=== PATIENT | female | born 1945 | race Caucasian/White ===

== ENCOUNTER → 2016-11-07 | Outpatient (CLI) | payer OTHER ==
[~2016-11-07] MED LIST: ASPIRIN325 MG PO; BACTRIM,SEPT1 TABLET PO; BYSTOLIC10 MG PO; CALCIUM 600 +1 EAC4 PO; FERREX 150150 MG PO; HYDROCODON-ACE1 EAC7 PO; LISINOPRIL20 MG PO; METRONIDAZOLE500 MG PO; MULTIPLE VITAM1 EACH PO; OMEGA-31000 M1 PO; PRAVASTATIN SOD10 MG PO; SUPER B COMP1 TABLET PO; VENLAFAXINE HCL75 MG PO; VITAMIN C1000 MG PO; VITAMIN D2000 UNIT PO
[2016-11-07 10:15] LABS: PROTHROMBIN TIME 10.4 (9.2-11.2); PTT 28.9 (25-32)
[2016-11-07 10:16] LABS: HEMATOCRIT 40.1 % (36.0-46.0); MCH 29.9 PG (29.0-34.0); MCHC 32.2 G/DL (30.0-36.0); MCV 92.8 FL (83-99); MEAN PLAT.VOLUME 10.3 uM^3 (9.5-12.4); PLATELET COUNT 287 K/uL (156-360); RBC DIS.WIDTH-CV 13.4 % (11.8-14.6); RBC DIS.WIDTH-SD 45.9 % (39-53); RED BLOOD COUNT 4.32 M/uL (3.80-5.20)
== END | disposition home or self-care (01) ==
LOC: OPR 09:27 → EDSTATUS 10:00
PROVIDERS: Radiology Diagnostic Radiology
PROC: 0BBJ3ZX Excision of Left Lower Lung Lobe, Percutaneous Approach, Diagnostic (ICD-10-PCS; principal; 2016-11-07)
DX: C78.02 Secondary malignant neoplasm of left lung (principal); Z85.038 Personal history of other malignant neoplasm of large intestine; Z92.21 Personal history of antineoplastic chemotherapy; Z88.0 Allergy status to penicillin
CPT/HCPCS: 71010; 77012; 85027; 85610; 85730; 88305; 88341 TC; 88342 TC; J3010

== ENCOUNTER → 2016-12-07 | Outpatient (CLI) | payer OTHER ==
[2016-12-07 09:21] LABS: BASE EXCESS 0.7 mEq/L (-3 to +3); BICARBONATE 24.3 mEq/L (22-26); CARBOXY HGB 0.9 % (0-5); COMMENTS - BLOOD GASES NAC+; PCO2 35 mm Hg (35-45); PO2 72 mm Hg (80-100); SITE LR; pH 7.45 (7.35-7.45)
[2016-12-07 09:22] LABS: FI02 21 %
== END | disposition home or self-care (01) ==
LOC: RES 09:00
PROVIDERS: Thoracic Surgery (Cardiothoracic Vascular Surgery)
DX: C18.9 Malignant neoplasm of colon, unspecified (principal); C77.2 Secondary and unspecified malignant neoplasm of intra-abdominal lymph nodes; C78.00 Secondary malignant neoplasm of unspecified lung
CPT/HCPCS: 36600; 82803; 94060; 94726; 94729

== ENCOUNTER 2016-12-27 11:58 | Day surgery (SDC) | payer OTHER ==
[~2016-12-27] VITALS: Ht 157.5 cm; Wt 72.7 kg
[2016-12-27 12:48] LABS: EOSINOPHIL (%) 1.5 % (0-5); EOSINOPHIL COUNT 0.1 K/uL (0-0.3); HEMATOCRIT 40.8 % (36.0-46.0); IMMATURE GRANULOCYTE COUNT 0.1 K/uL; INSTRUMENT ABS NEUTROPHIL CT 4.6 K/uL; LYMPHOCYTE COUNT 1.4 K/uL (1.0-2.8); MCH 29.8 PG (29.0-34.0); MCHC 32.6 G/DL (30.0-36.0); MCV 91.3 FL (83-99); MEAN PLAT.VOLUME 10.2 uM^3 (9.5-12.4); MONOCYTE (%) 7.8 % (3-12); MONOCYTE COUNT 0.5 K/uL (0-0.8); NEUTROPHIL (%) 68.3 % (45-76); NEUTROPHIL COUNT 4.6 K/uL (1.8-6.4); PLATELET COUNT 238 K/uL (156-360); RBC DIS.WIDTH-CV 13.1 % (11.8-14.6); RBC DIS.WIDTH-SD 44.3 % (39-53); RED BLOOD COUNT 4.47 M/uL (3.80-5.20); WHITE BLOOD COUNT 6.7 K/uL (4.1-10.2)
[2016-12-27 12:50] VITALS: BP 164/72
[2016-12-27 12:55] LABS: CHLORIDE 108 mEq/L (99-109); POTASSIUM 4.2 mEq/L (3.7-5.4); SODIUM 141 mEq/L (136-147)
[2016-12-27 12:57] LABS: GLUCOSE 96 mg/dL (70-99)
[2016-12-27 12:58] LABS: ANION GAP 11 MEQ/L (2-14)
[2016-12-27 12:59] LABS: TOTAL BILIRUBIN 0.6 mg/dL (0.0-1.0)
[2016-12-27 13:00] LABS: ALKALINE PHOSPHATASE 73 IU/L (3-129); GFR ESTIMATE (CALCULATED) > 59 mL/min/
[2016-12-27 13:02] LABS: UREA NITROGEN (BUN) 15 mg/dL (9-23)
[2016-12-27] MEDS ORDERED: HYDROCODON-ACE1 EAC7 PO (18:47)
[2016-12-27] MEDS ORDERED: COLACE100 MG PO (18:47)
[2016-12-27 19:15] VITALS: BP 191/86
[2016-12-27 19:50] VITALS: BP 181/86
[2016-12-27 20:20] VITALS: BP 164/72
[2016-12-27 21:15] VITALS: BP 172/80
== END 2016-12-27 21:24 | disposition home or self-care (01) ==
LOC: SDC 11:58
PROVIDERS: Thoracic Surgery (Cardiothoracic Vascular Surgery)
DX: C78.02 Secondary malignant neoplasm of left lung (principal); I10 Essential (primary) hypertension; Z85.038 Personal history of other malignant neoplasm of large intestine; Z88.0 Allergy status to penicillin; Z86.73 Personal history of transient ischemic attack (TIA), and cerebral infarction without residual deficits
CPT/HCPCS: 71010; 80053; 85025; 86900; 86901; 88305; C1751; J0330; J0690; J3010

== ENCOUNTER 2017-01-24 09:44 | Inpatient (IN) | payer OTHER ==
[2017-01-24] VITALS (7 sets, daily range): BP systolic 135–217; BP diastolic 53–93
[~2017-01-24] VITALS: Ht 160 cm; Wt 74.1 kg
[~2017-01-24 09:44] MED LIST changes: +COLACE100 MG PO
[2017-01-24 10:49] LABS: EOSINOPHIL (%) 1.5 % (0-5); EOSINOPHIL COUNT 0.1 K/uL (0-0.3); HEMATOCRIT 39.7 % (36.0-46.0); IMMATURE GRANULOCYTE (%) 0.9 % (0.0-0.7); IMMATURE GRANULOCYTE COUNT 0.1 K/uL; INSTRUMENT ABS NEUTROPHIL CT 4.9 K/uL; LYMPHOCYTE COUNT 1.3 K/uL (1.0-2.8); MCH 29.2 PG (29.0-34.0); MCHC 32.2 G/DL (30.0-36.0); MCV 90.6 FL (83-99); MEAN PLAT.VOLUME 10.3 uM^3 (9.5-12.4); MONOCYTE (%) 6.3 % (3-12); MONOCYTE COUNT 0.4 K/uL (0-0.8); NEUTROPHIL (%) 71.7 % (45-76); NEUTROPHIL COUNT 4.9 K/uL (1.8-6.4); PLATELET COUNT 245 K/uL (156-360); RBC DIS.WIDTH-CV 13.2 % (11.8-14.6); RBC DIS.WIDTH-SD 44.5 % (39-53); RED BLOOD COUNT 4.38 M/uL (3.80-5.20); WHITE BLOOD COUNT 6.8 K/uL (4.1-10.2)
[2017-01-24 11:00] LABS: PROTHROMBIN TIME 10.3 (9.2-11.2)
[2017-01-24 11:21] LABS: ANION GAP 12 MEQ/L (2-14); CHLORIDE 105 MEQ/L (99-109); POTASSIUM 4.1 MEQ/L (3.7-5.4); SAMPLE HEMOLYSIS CHECK 0; SAMPLE ICTERIC CHECK 0; SAMPLE LIPEMIA CHECK 0; SODIUM 141 MEQ/L (136-147); TOTAL BILIRUBIN 0.5 MG/DL (0.0-1.0)
[2017-01-24 11:27] LABS: ALKALINE PHOSPHATASE 89 IU/L (3-129); GFR ESTIMATE (CALCULATED) > 59 mL/min/; GLUCOSE 104 mg/dL (70-99); UREA NITROGEN (BUN) 17 mg/dL (9-23)
[2017-01-24 21:19] LABS: METH RESISTANT S AUREUS PCR NEGATIVE (NEGATIVE)
[2017-01-24 21:20] LABS: PROBE CHECK PASS; SPECIMEN PROCESSING CONTROL PASS
[2017-01-25] VITALS (14 sets, daily range): BP systolic 109–196; BP diastolic 50–76
[2017-01-25 07:06] LABS: HEMATOCRIT 32.3 % (36.0-46.0); MCH 29.6 PG (29.0-34.0); MCHC 32.2 G/DL (30.0-36.0); MEAN PLAT.VOLUME 10.2 uM^3 (9.5-12.4); PLATELET COUNT 199 K/uL (156-360); RBC DIS.WIDTH-CV 13.4 % (11.8-14.6); RBC DIS.WIDTH-SD 45.1 % (39-53); RED BLOOD COUNT 3.51 M/uL (3.80-5.20); WHITE BLOOD COUNT 10.5 K/uL (4.1-10.2)
[2017-01-25 07:13] LABS: ANION GAP 9 MEQ/L (2-14); CHLORIDE 103 MEQ/L (99-109); GFR ESTIMATE (CALCULATED) > 59 mL/min/; GLUCOSE 117 mg/dL (70-99); POTASSIUM 4.7 MEQ/L (3.7-5.4); SAMPLE HEMOLYSIS CHECK 0; SAMPLE ICTERIC CHECK 0; SAMPLE LIPEMIA CHECK 0; SODIUM 137 MEQ/L (136-147); UREA NITROGEN (BUN) 20 mg/dL (9-23)
[2017-01-26] VITALS (14 sets, daily range): BP systolic 130–182; BP diastolic 50–78
[2017-01-26 06:04] LABS: HEMATOCRIT 30.9 % (36.0-46.0); MCH 30.6 PG (29.0-34.0); MCV 92.8 FL (83-99); MEAN PLAT.VOLUME 10.6 uM^3 (9.5-12.4); PLATELET COUNT 175 K/uL (156-360); RBC DIS.WIDTH-CV 13.6 % (11.8-14.6); RBC DIS.WIDTH-SD 46.4 % (39-53); RED BLOOD COUNT 3.33 M/uL (3.80-5.20); WHITE BLOOD COUNT 8.9 K/uL (4.1-10.2)
[2017-01-26 06:33] LABS: ANION GAP 6 MEQ/L (2-14); CHLORIDE 102 MEQ/L (99-109); GFR ESTIMATE (CALCULATED) > 59 mL/min/; GLUCOSE 119 mg/dL (70-99); SAMPLE HEMOLYSIS CHECK 0; SAMPLE ICTERIC CHECK 0; SAMPLE LIPEMIA CHECK 0; SODIUM 137 MEQ/L (136-147); UREA NITROGEN (BUN) 12 mg/dL (9-23)
[2017-01-27] VITALS (9 sets, daily range): BP systolic 0–191; BP diastolic 0–81
[2017-01-27 05:22] LABS: HEMATOCRIT 30.9 % (36.0-46.0); MCH 29.7 PG (29.0-34.0); MCHC 32.4 G/DL (30.0-36.0); MCV 91.7 FL (83-99); MEAN PLAT.VOLUME 10.4 uM^3 (9.5-12.4); PLATELET COUNT 189 K/uL (156-360); RBC DIS.WIDTH-CV 13.3 % (11.8-14.6); RBC DIS.WIDTH-SD 45.1 % (39-53); RED BLOOD COUNT 3.37 M/uL (3.80-5.20); WHITE BLOOD COUNT 8.4 K/uL (4.1-10.2)
[2017-01-27 13:16] LABS: ANION GAP 7 MEQ/L (2-14); CHLORIDE 106 MEQ/L (99-109); POTASSIUM 3.7 MEQ/L (3.7-5.4); SAMPLE HEMOLYSIS CHECK 0; SAMPLE ICTERIC CHECK 0; SAMPLE LIPEMIA CHECK 0; SODIUM 142 MEQ/L (136-147)
[2017-01-27 13:21] LABS: GFR ESTIMATE (CALCULATED) > 59 mL/min/; GLUCOSE 94 mg/dL (70-99); UREA NITROGEN (BUN) 12 mg/dL (9-23)
[2017-01-28] VITALS (11 sets, daily range): BP systolic 107–175; BP diastolic 45–79
[2017-01-28 06:24] LABS: HEMATOCRIT 30.4 % (36.0-46.0); MCH 30.7 PG (29.0-34.0); MCHC 33.2 G/DL (30.0-36.0); MCV 92.4 FL (83-99); MEAN PLAT.VOLUME 10.5 uM^3 (9.5-12.4); PLATELET COUNT 184 K/uL (156-360); RBC DIS.WIDTH-CV 13.6 % (11.8-14.6); RBC DIS.WIDTH-SD 46.5 % (39-53); RED BLOOD COUNT 3.29 M/uL (3.80-5.20); WHITE BLOOD COUNT 8.6 K/uL (4.1-10.2)
[2017-01-28 06:54] LABS: MAGNESIUM 1.9 mg/dl (1.3-2.7)
[2017-01-29] VITALS (13 sets, daily range): BP systolic 135–222; BP diastolic 55–95
[2017-01-30] VITALS (8 sets, daily range): BP systolic 98–171; BP diastolic 55–75
[2017-01-31 03:00] VITALS: BP 168/70
[2017-01-31 07:02] VITALS: BP 143/69
[2017-01-31 07:53] LABS: HEMATOCRIT 31.4 % (36.0-46.0); MCH 29.8 PG (29.0-34.0); MCHC 32.5 G/DL (30.0-36.0); MCV 91.8 FL (83-99); RBC DIS.WIDTH-SD 47.3 % (39-53); RED BLOOD COUNT 3.42 M/uL (3.80-5.20); WHITE BLOOD COUNT 7.4 K/uL (4.1-10.2)
[2017-01-31 07:54] LABS: PLATELET COUNT 240 K/uL (156-360)
[2017-01-31 08:20] LABS: ANION GAP 9 MEQ/L (2-14); CHLORIDE 105 MEQ/L (99-109); GFR ESTIMATE (CALCULATED) > 59 mL/min/; GLUCOSE 99 mg/dL (70-99); POTASSIUM 4.1 MEQ/L (3.7-5.4); SAMPLE HEMOLYSIS CHECK 0; SAMPLE ICTERIC CHECK 0; SAMPLE LIPEMIA CHECK 0; SODIUM 142 MEQ/L (136-147); UREA NITROGEN (BUN) 15 mg/dL (9-23)
[2017-01-31 10:55] VITALS: BP 124/58
[2017-01-31 12:02] LABS: POINT-OF-CARE METER ID UU13113781; POINT-OF-CARE USER ID ENVKC36
[2017-01-31 14:58] VITALS: BP 126/87
[2017-01-31] MEDS ORDERED: ENDOCET 5-3251 EACH PO (15:47)
[2017-01-31] MEDS ORDERED: DOCUSATE SODIU100 MG PO (15:47)
[2017-01-31] MEDS ORDERED: LOPRESSOR50 MG PO (15:47)
[2017-01-31] MEDS ORDERED: DIGOXIN125 MCG PO (15:47)
== END 2017-01-31 17:25 | disposition home or self-care (01) | DRG 165 ==
LOC: 2SOUTH 09:44 → 4WEST 19:57 → 4EAST 01-29 17:48
PROVIDERS: Surgery; Thoracic Surgery (Cardiothoracic Vascular Surgery)
PROC: 0BTJ0ZZ Resection of Left Lower Lung Lobe, Open Approach (ICD-10-PCS; principal; 2017-01-24)
PROC: 07B70ZX Excision of Thorax Lymphatic, Open Approach, Diagnostic (ICD-10-PCS; principal; 2017-01-24)
PROC: 0W9B30Z Drainage of Left Pleural Cavity with Drainage Device, Percutaneous Approach (ICD-10-PCS; principal; 2017-01-24)
PROC: 3E0R3CZ (ICD-10-PCS; principal; 2017-01-24)
PROC: 00HU33Z Insertion of Infusion Device into Spinal Canal, Percutaneous Approach (ICD-10-PCS; principal; 2017-01-24)
DX: C78.02 Secondary malignant neoplasm of left lung (principal); I48.91 Unspecified atrial fibrillation; K21.9 Gastro-esophageal reflux disease without esophagitis; I10 Essential (primary) hypertension; D64.9 Anemia, unspecified; E78.5 Hyperlipidemia, unspecified; K59.00 Constipation, unspecified; Z90.49 Acquired absence of other specified parts of digestive tract; Z79.82 Long term (current) use of aspirin; Z86.73 Personal history of transient ischemic attack (TIA), and cerebral infarction without residual deficits; Z85.038 Personal history of other malignant neoplasm of large intestine; Z88.0 Allergy status to penicillin
CPT/HCPCS: 71010; 71020; 80048; 80053; 82948; 83735; 84100; 85025; 85027; 85610; 85730; 86900; 86901; 86920; 87641; 88300; 88305; 88309; 88313; 94640; 94640 76; 94799; 97530 GO; 97530 GP; 99202; J0690; J1100; J1160; J1170; J1644; J1885; J2250; J2405; J3010; J7050; J7120; S0020

== ENCOUNTER 2017-02-09 17:19 | Emergency (ER) | payer OTHER ==
[~2017-02-09] VITALS: Ht 157.5 cm; Wt 72.3 kg
[~2017-02-09 17:19] MED LIST changes: +DIGOXIN125 MCG PO; +DOCUSATE SODIU100 MG PO; +ENDOCET 5-3251 EACH PO; +LOPRESSOR50 MG PO
[2017-02-09 18:12] LABS: EOSINOPHIL (%) 3.1 % (0-5); EOSINOPHIL COUNT 0.2 K/uL (0-0.3); HEMATOCRIT 36.8 % (36.0-46.0); IMMATURE GRANULOCYTE (%) 0.9 % (0.0-0.7); IMMATURE GRANULOCYTE COUNT 0.1 K/uL; INSTRUMENT ABS NEUTROPHIL CT 4.6 K/uL; LYMPHOCYTE COUNT 1.3 K/uL (1.0-2.8); MCH 29.3 PG (29.0-34.0); MCHC 31.8 G/DL (30.0-36.0); MEAN PLAT.VOLUME 9.8 uM^3 (9.5-12.4); MONOCYTE (%) 8.6 % (3-12); MONOCYTE COUNT 0.6 K/uL (0-0.8); NEUTROPHIL (%) 67.6 % (45-76); NEUTROPHIL COUNT 4.6 K/uL (1.8-6.4); PLATELET COUNT 388 K/uL (156-360); RBC DIS.WIDTH-CV 14.1 % (11.8-14.6); RBC DIS.WIDTH-SD 47.4 % (39-53); WHITE BLOOD COUNT 6.7 K/uL (4.1-10.2)
[2017-02-09 18:14] LABS: PROTHROMBIN TIME 11.1 SEC (10.2-12.9)
[2017-02-09 18:17] LABS: CHLORIDE 103 mEq/L (99-109); POTASSIUM 4.7 mEq/L (3.7-5.4); PTT 28.5 SEC (25-37); SODIUM 137 mEq/L (136-147)
[2017-02-09 18:19] LABS: GLUCOSE 129 mg/dL (70-99)
[2017-02-09 18:20] LABS: ANION GAP 14 MEQ/L (2-14)
[2017-02-09 18:23] LABS: GFR ESTIMATE (CALCULATED) > 59 mL/min/
[2017-02-09 18:24] LABS: UREA NITROGEN (BUN) 17 mg/dL (9-23)
[2017-02-09 18:31] LABS: TROP-I INTERPRETATION NEGATIVE; TROPONIN-I < 0.01 ng/mL (0.0-0.30)
[2017-02-09 22:50] LABS: TROP-I INTERPRETATION NEGATIVE; TROPONIN-I < 0.01 ng/mL (0.0-0.30)
[2017-02-09 23:12] VITALS: BP 175/61
== END 2017-02-09 23:13 | disposition home or self-care (01) ==
LOC: EME 17:19
PROVIDERS: Emergency Medicine
DX: J90 Pleural effusion, not elsewhere classified (principal); R07.9 Chest pain, unspecified; Z85.118 Personal history of other malignant neoplasm of bronchus and lung; Z90.2 Acquired absence of lung [part of]; I10 Essential (primary) hypertension; Z86.73 Personal history of transient ischemic attack (TIA), and cerebral infarction without residual deficits
CPT/HCPCS: 71010; 71275; 80048; 84484; 85025; 85610; 85730; 93005; 99281; 99285

== ENCOUNTER 2017-03-28 12:46 | Inpatient (IN) | payer OTHER ==
[~2017-03-28] VITALS: Ht 157.5 cm; Wt 70.2 kg
[2017-03-28 13:47] LABS: EOSINOPHIL (%) 0.5 % (0-5); HEMATOCRIT 34.9 % (36.0-46.0); IMMATURE GRANULOCYTE (%) 0.4 % (0.0-0.7); INSTRUMENT ABS NEUTROPHIL CT 6.4 K/uL; MCH 29.7 PG (29.0-34.0); MCHC 32.7 G/DL (30.0-36.0); MCV 90.9 FL (83-99); MEAN PLAT.VOLUME 9.4 uM^3 (9.5-12.4); MONOCYTE (%) 7.2 % (3-12); MONOCYTE COUNT 0.6 K/uL (0-0.8); NEUTROPHIL (%) 79.9 % (45-76); NEUTROPHIL COUNT 6.4 K/uL (1.8-6.4); RED BLOOD COUNT 3.84 M/uL (3.80-5.20)
[2017-03-28 13:49] LABS: PLATELET COUNT 192 K/uL (156-360)
[2017-03-28 13:59] LABS: CHLORIDE 108 mEq/L (99-109); SODIUM 139 mEq/L (136-147)
[2017-03-28 14:01] LABS: GLUCOSE 129 mg/dL (70-99)
[2017-03-28 14:02] LABS: ANION GAP 11 MEQ/L (2-14)
[2017-03-28 14:03] LABS: TOTAL BILIRUBIN 0.8 mg/dL (0.0-1.0)
[2017-03-28 14:04] LABS: ALKALINE PHOSPHATASE 73 IU/L (3-129); POTASSIUM 3.5 mEq/L (3.7-5.4)
[2017-03-28 14:05] LABS: GFR ESTIMATE (CALCULATED) > 59 mL/min/
[2017-03-28 14:08] LABS: TROP-I INTERPRETATION NEGATIVE; TROPONIN-I < 0.01 ng/mL (0.0-0.30); UREA NITROGEN (BUN) 21 mg/dL (9-23)
[2017-03-28 16:35] VITALS: BP 133/58
[2017-03-28 19:26] VITALS: BP 122/59
[2017-03-28] MEDS ORDERED: CALTRATE 600 +1 EAC1 PO (20:11)
[2017-03-28] MEDS ORDERED: VITAMIN D22000 UNIT PO (20:11)
[2017-03-28] MEDS ORDERED: ASPIR-TRIN325 M1 PO (20:11)
[2017-03-28] MEDS ORDERED: BIOTIN5 M1 PO (20:11)
[2017-03-28] MEDS ORDERED: PRAVACHOL10 MG PO (20:12)
[2017-03-28] MEDS ORDERED: ONE-A-DAY ESSE1 EAC1 PO (20:12)
[2017-03-28] MEDS ORDERED: DECADRON4 MG PO (20:13)
[2017-03-28] MEDS ORDERED: LISINOPRIL20 MG PO (20:13)
[2017-03-28] MEDS ORDERED: METOPROLOL TART50 MG PO (20:14)
[2017-03-28] MEDS ORDERED: DIGOXIN125 MCG PO (20:14)
[2017-03-28] MEDS ORDERED: ATIVAN0.5 MG PO (20:15)
[2017-03-28] MEDS ORDERED: COMPAZINE10 MG PO (20:15)
[2017-03-28] MEDS ORDERED: PERCOCET 5/31 TABLET PO (20:15)
[2017-03-28 20:16] LABS: TROP-I INTERPRETATION NEGATIVE; TROPONIN-I < 0.01 ng/mL (0.0-0.30)
[2017-03-28 21:49] LABS: HEMATOCRIT 33.2 % (36.0-46.0)
[2017-03-28 23:08] VITALS: BP 120/58
[2017-03-29 03:24] LABS: TROP-I INTERPRETATION NEGATIVE; TROPONIN-I < 0.01 ng/mL (0.0-0.30)
[2017-03-29 03:30] VITALS: BP 112/56
[2017-03-29 08:00] VITALS: BP 120/58
[2017-03-29 10:27] LABS: HEMATOCRIT 31.5 % (36.0-46.0); MCV 94.3 FL (83-99)
[2017-03-29 12:00] VITALS: BP 162/70
[2017-03-29 16:00] VITALS: BP 137/64
[2017-03-29 17:11] LABS: C DIFF TOXIN NEGATIVE (NEGATIVE)
[2017-03-29 17:17] LABS: PROBE CHECK PASS; SPECIMEN PROCESSING CONTROL PASS
[2017-03-29 20:05] VITALS: BP 150/65
[2017-03-30] VITALS (7 sets, daily range): BP systolic 137–190; BP diastolic 60–80
[2017-03-30 05:55] LABS: HEMATOCRIT 30.1 % (36.0-46.0); MCH 30.2 PG (29.0-34.0); MCHC 32.6 G/DL (30.0-36.0); MCV 92.6 FL (83-99); MEAN PLAT.VOLUME 10.5 uM^3 (9.5-12.4); PLATELET COUNT 180 K/uL (156-360); RBC DIS.WIDTH-CV 14.6 % (11.8-14.6); RBC DIS.WIDTH-SD 49.4 % (39-53); RED BLOOD COUNT 3.25 M/uL (3.80-5.20); WHITE BLOOD COUNT 5.3 K/uL (4.1-10.2)
[2017-03-30 06:16] LABS: ANION GAP 9 MEQ/L (2-14); CHLORIDE 110 MEQ/L (99-109); GFR ESTIMATE (CALCULATED) > 59 mL/min/; GLUCOSE 108 mg/dL (70-99); POTASSIUM 3.7 MEQ/L (3.7-5.4); SAMPLE HEMOLYSIS CHECK 0; SAMPLE ICTERIC CHECK 0; SAMPLE LIPEMIA CHECK 0; SODIUM 143 MEQ/L (136-147); UREA NITROGEN (BUN) 7 mg/dL (9-23)
[2017-03-30 20:50] LABS: POINT-OF-CARE METER ID UU14174216
[2017-03-31] VITALS (7 sets, daily range): BP systolic 127–189; BP diastolic 63–78
[2017-03-31 04:40] LABS: HEMATOCRIT 31.4 % (36.0-46.0); MCH 29.1 PG (29.0-34.0); MCHC 32.2 G/DL (30.0-36.0); MCV 90.5 FL (83-99); PLATELET COUNT 198 K/uL (156-360); RBC DIS.WIDTH-CV 14.1 % (11.8-14.6); RBC DIS.WIDTH-SD 46.3 % (39-53); RED BLOOD COUNT 3.47 M/uL (3.80-5.20); WHITE BLOOD COUNT 4.3 K/uL (4.1-10.2)
[2017-03-31 04:56] LABS: CHLORIDE 111 mEq/L (99-109); POTASSIUM 3.6 mEq/L (3.7-5.4); SODIUM 143 mEq/L (136-147)
[2017-03-31 04:58] LABS: GLUCOSE 120 mg/dL (70-99)
[2017-03-31 04:59] LABS: ANION GAP 9 MEQ/L (2-14)
[2017-03-31 05:02] LABS: GFR ESTIMATE (CALCULATED) > 59 mL/min/; UREA NITROGEN (BUN) 12 mg/dL (9-23)
[2017-03-31] MEDS ORDERED: LOPERAMIDE2 MG PO (15:26)
[2017-03-31] MEDS ORDERED: XARELTO20 MG PO (15:27)
[2017-03-31] MEDS ORDERED: PROTONIX40 MG PO (15:35)
[2017-04-01 00:50] VITALS: BP 137/62
[2017-04-01 04:24] VITALS: BP 144/69
[2017-04-01 06:10] LABS: HEMATOCRIT 31.6 % (36.0-46.0); MCHC 33.9 G/DL (30.0-36.0); MCV 91.6 FL (83-99); MEAN PLAT.VOLUME 10.2 uM^3 (9.5-12.4); PLATELET COUNT 209 K/uL (156-360); RBC DIS.WIDTH-CV 14.5 % (11.8-14.6); RBC DIS.WIDTH-SD 47.8 % (39-53); RED BLOOD COUNT 3.45 M/uL (3.80-5.20); WHITE BLOOD COUNT 4.4 K/uL (4.1-10.2)
[2017-04-01 07:30] VITALS: BP 147/67
[2017-04-01 08:00] LABS: ANION GAP 7 MEQ/L (2-14); CHLORIDE 107 MEQ/L (99-109); GFR ESTIMATE (CALCULATED) > 59 mL/min/; GLUCOSE 109 mg/dL (70-99); POTASSIUM 3.9 MEQ/L (3.7-5.4); SAMPLE HEMOLYSIS CHECK 0; SAMPLE ICTERIC CHECK 0; SAMPLE LIPEMIA CHECK 0; SODIUM 140 MEQ/L (136-147); UREA NITROGEN (BUN) 16 mg/dL (9-23)
== END 2017-04-01 12:25 | disposition home or self-care (01) | DRG 309 ==
LOC: EME 12:46 → EDOF 14:10 → 4EAST 14:10 → ENRESERV 14:14 → 4EAST 16:25 → ENRESERV 03-31 11:23 → 2EAST 03-31 12:24
PROVIDERS: Emergency Medicine; Internal Medicine; Internal Medicine Gastroenterology; Physician Assistant
DX: I48.0 Paroxysmal atrial fibrillation (principal); C78.00 Secondary malignant neoplasm of unspecified lung; C18.9 Malignant neoplasm of colon, unspecified; D64.9 Anemia, unspecified; K52.9 Noninfective gastroenteritis and colitis, unspecified; I11.9 Hypertensive heart disease without heart failure; E78.5 Hyperlipidemia, unspecified; T45.1X5A Adverse effect of antineoplastic and immunosuppressive drugs, initial encounter; K57.90 Diverticulosis of intestine, part unspecified, without perforation or abscess without bleeding; J98.11 Atelectasis; E87.6 Hypokalemia; R19.7 Diarrhea, unspecified; J90 Pleural effusion, not elsewhere classified; S22.39XA Fracture of one rib, unspecified side, initial encounter for closed fracture; K92.2 Gastrointestinal hemorrhage, unspecified; K21.9 Gastro-esophageal reflux disease without esophagitis; J44.9 Chronic obstructive pulmonary disease, unspecified; Z86.73 Personal history of transient ischemic attack (TIA), and cerebral infarction without residual deficits; Z79.899 Other long term (current) drug therapy; Z79.82 Long term (current) use of aspirin; Z79.01 Long term (current) use of anticoagulants; Z90.2 Acquired absence of lung [part of]; Z87.891 Personal history of nicotine dependence; Z90.49 Acquired absence of other specified parts of digestive tract; Z92.3 Personal history of irradiation; Z88.0 Allergy status to penicillin; Q27.30 Arteriovenous malformation, site unspecified
CPT/HCPCS: 71010; 71260; 80048; 80053; 82948; 84484; 85014; 85018; 85025; 85027; 86850; 86900; 86901; 86920; 87040; 87070; 87205; 87493; 87506; 93005; 99202; 99281; 99285; C9113; J0360; J7030

== ENCOUNTER → 2017-05-02 | Outpatient (CLI) | payer OTHER ==
[~2017-05-02] VITALS: Ht 160 cm; Wt 72.6 kg
[~2017-05-02] MED LIST changes: +ANTI-DIARRHEA2 MG PO; +ASPIR-TRIN325 M1 PO; +ATIVAN0.5 MG PO; +BIOTIN5 M1 PO; +CALTRATE 600 +1 EAC1 PO; +COMPAZINE10 MG PO; +DECADRON4 MG PO; +LOPERAMIDE2 MG PO; +METOPROLOL TART50 MG PO; +ONE-A-DAY ESSE1 EAC1 PO; +PERCOCET 5/31 TABLET PO; +PRAVACHOL10 MG PO; +PROTONIX40 MG PO; +VITAMIN D22000 UNIT PO; +XARELTO20 MG PO
[2017-05-02 12:47] LABS: MCH 28.9 PG (29.0-34.0); MCHC 31.5 G/DL (30.0-36.0); MCV 91.7 FL (83-99); MEAN PLAT.VOLUME 10.5 uM^3 (9.5-12.4); PLATELET COUNT 276 K/uL (156-360); RBC DIS.WIDTH-CV 14.6 % (11.8-14.6); RBC DIS.WIDTH-SD 49.2 % (39-53); RED BLOOD COUNT 4.36 M/uL (3.80-5.20)
== END | disposition home or self-care (01) ==
LOC: AMB 12:01
PROVIDERS: Anesthesiology
PROC: 0DBK8ZX Excision of Ascending Colon, Via Natural or Artificial Opening Endoscopic, Diagnostic (ICD-10-PCS; principal; 2017-05-02)
DX: K92.1 Melena (principal); D12.2 Benign neoplasm of ascending colon; K57.30 Diverticulosis of large intestine without perforation or abscess without bleeding; Z85.038 Personal history of other malignant neoplasm of large intestine; R19.7 Diarrhea, unspecified; Z86.73 Personal history of transient ischemic attack (TIA), and cerebral infarction without residual deficits; I10 Essential (primary) hypertension; E78.5 Hyperlipidemia, unspecified; K21.9 Gastro-esophageal reflux disease without esophagitis; B96.81 Helicobacter pylori [H. pylori] as the cause of diseases classified elsewhere; Z92.21 Personal history of antineoplastic chemotherapy
CPT/HCPCS: 85027; 88305; J2250; J3010

== ENCOUNTER 2018-03-19 09:29 | Day surgery (SDC) | payer OTHER ==
[~2018-03-19] VITALS: Ht 160 cm; Wt 69.6 kg
[2018-03-19] MEDS ORDERED: METOPROLOL TART50 MG PO (10:17)
[2018-03-19] MEDS ORDERED: CARDIZEM CD,CA180 MG PO (10:19)
[2018-03-19] MEDS ORDERED: CARDIZEM60 MG PO (10:20)
[2018-03-19] MEDS ORDERED: LISINOPRIL40 MG PO (10:21)
[2018-03-19 10:30] VITALS: BP 198/82
[2018-03-19 10:42] VITALS: BP 183/83
[2018-03-19] MEDS ORDERED: NORCO 5/3251 TABLET PO (13:59)
[2018-03-19 17:20] VITALS: BP 127/56
[2018-03-19 19:02] VITALS: BP 132/64
[2018-03-19 23:03] VITALS: BP 139/70
[2018-03-20 03:02] VITALS: BP 136/65
[2018-03-20 07:20] VITALS: BP 133/54
[2018-03-20 11:00] VITALS: BP 157/67
== END 2018-03-20 14:35 | disposition home or self-care (01) ==
LOC: SDC 09:29 → 2SOUTH 13:24 → ENRESERV 15:34 → 2EAST 16:49
PROC: 0JNC0ZZ Release Pelvic Region Subcutaneous Tissue and Fascia, Open Approach (ICD-10-PCS; principal; 2018-03-19)
PROC: 07BB0ZX Excision of Mesenteric Lymphatic, Open Approach, Diagnostic (ICD-10-PCS; principal; 2018-03-19)
DX: C77.2 Secondary and unspecified malignant neoplasm of intra-abdominal lymph nodes (principal); K66.0 Peritoneal adhesions (postprocedural) (postinfection); Z53.31 Laparoscopic surgical procedure converted to open procedure; Z85.038 Personal history of other malignant neoplasm of large intestine; Z92.21 Personal history of antineoplastic chemotherapy; Z90.49 Acquired absence of other specified parts of digestive tract; Z90.79 Acquired absence of other genital organ(s); Z90.722 Acquired absence of ovaries, bilateral; Z90.2 Acquired absence of lung [part of]; I10 Essential (primary) hypertension; I25.10 Atherosclerotic heart disease of native coronary artery without angina pectoris; I48.91 Unspecified atrial fibrillation; E78.5 Hyperlipidemia, unspecified; F41.9 Anxiety disorder, unspecified; Z79.01 Long term (current) use of anticoagulants
CPT/HCPCS: 86850; 86900; 86901; 88305; 93005; 94799; G0378; J1335; J2001; J2405; J2710; J3010; J3475; J7050; J7120; J7643; Q0175; S0020